=== PATIENT | female | born 1980 | race Caucasian/White ===

== ENCOUNTER 2021-07-07 12:29 | Emergency (ER) | payer SELFPAY ==
[2021-07-07] MEDS ORDERED: Haloperidol Lactate 5 MG/ML SDV IM ONE ×2 (13:52→13:59)
[2021-07-07] MEDS ORDERED: Haloperidol Lactate 5 MG/ML SDV ONE (13:54)
[2021-07-07 14:09] LABS: BUPRENORPHINE,URINE NEGATIVE (NEGATIVE); MARIJUANA,URINE NEGATIVE (NEGATIVE); METHYLENEDIOXYMETHAMP,UR NEGATIVE (NEGATIVE); PHENCYCLIDINE,URINE NEGATIVE (NEGATIVE)
--- NOTE | 2021-07-07 14:18 | EDM.PDOCBH ---
ED HPI GENERAL MEDICAL PROBLEM - General Stated Complaint: aggitated Time Seen by Provider: 07/07/21 14:12 Source of Information: Reports: Patient History Limitations: Reports: Altered Mental Status - History of Present Illness INITIAL COMMENTS - FREE TEXT/NARRATIVE: Patient is brought to the emergency department by the local Police Department with concerns of a mental health crisis. This patient was found wandering around town attempting to get into houses. She had an agitated state and confusion therefore the Police Department brought her to the ER and dropped her off and then the left. HPI is somewhat difficult to obtain from this patient as she is quite agitated and rambling and somewhat disoriented. From what I can get from the patient she reports that she was going to inpatient treatment for methamphetamine abuse somewhere today. She relates that she lives in [place]. She was on her way to inpatient treatment at [place] in [facility] for which she lives in [place] but she is in [place] for some reason trying to make amends with many of her family members. Just prior to going to inpatient treatment for methamphetamine abuse this patient injected snorted and smoked methamphetamines today. Rest of the HPI is unobtainable due to the patient's acute agitated methamphetamine induced psychosis. 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 She is in constant motion. She wax and wanes from laughing and crying.). No: Lethargic, Obtunded Eye Exam: Bilateral Eye: EOMI Ears: Normal External Exam Nose: Normal Inspection Throat/Mouth: Normal Inspection Head: Atraumatic, Normocephalic Neck: Normal Inspection, Supple, Non-Tender, Full Range of Motion Respiratory/Chest: No Respiratory Distress, Lungs Clear, Normal Breath Sounds, No Accessory Muscle Use, Chest Non-Tender Cardiovascular: Normal Peripheral Pulses, Regular Rate, Rhythm GI/Abdominal: Normal Bowel Sounds, Soft, Non-Tender, No Organomegaly (Female) Exam: Deferred Rectal (Female) Exam: Deferred Back Exam: Normal Inspection Extremities: Normal Inspection, Normal Range of Motion, Non-Tender, No Pedal Edema, Normal Capillary Refill Neurological: Alert, Normal Mood/Affect, CN II-XII Intact, Oriented x 3 Psychiatric: Alert, Restless, Tearful, Agitated, Disoriented, Flight of Ideas, Tangential Thoughts, Pressured Speech, Paranoid Thoughts. No: Homicidal Thoughts, Phobic, Latter-Day Delusions, Suicidal Plan, Suicidal Thoughts, Auditory Hallucinations, Visual Hallucinations, Grandiose Thoughts, Threatening Behavior Skin Exam: Warm, Dry, Intact, Normal color, No rash COURSE, BEHAVIORAL HEALTH COMP - Course Vital Signs: Last Vital Signs Temp 97.8 F 07/07/21 13:45 Pulse Resp BP Pulse Ox Orders, Labs, Meds: Active Orders 24 hr Category Date Time Status CORONAVIRUS COVID-19 RAPID [MOLEC] Stat Lab 07/07/21 13:56 Ordered Laboratory Tests 07/07/21 07/07/21 07/07/21 Range/Units 14:00 14:00 14:00 WBC (4.0-10.0) x10^3/uL RBC (4.00-5.50) x10^6/uL Hgb (12.0-16.0) g/dL Hct (33.0-47.0) % MCV (78.0-93.0) fL MCH (26.0-32.0) pg MCHC (32.0-36.0) g/dL RDW Coeff of Nicole (10.0-15.0) % Plt Count (130-400) x10^3/uL Immature Gran % (Auto) (0.00-0.43) % Neut % (Auto) (50.0-80.0) % Lymph % (Auto) (25.0-50.0) % [place] % (Auto) (2.0-11.0) % Eos % (Auto) (0.0-4.0) % Baso % (Auto) (0.2-1.2) % Neut # (Auto) (1.8-7.7) x10^3/uL Lymph # (Auto) (1.0-4.8) x10^3/uL [place] # (Auto) (0.0-0.8) x10^3/uL Eos # (Auto) (0.0-0.5) x10^3/uL Baso # (Auto) (0.0-0.2) x10^3/uL Immature Gran # (Auto) (0.00-0.07) x10^3/uL Sodium (136-145) mmol/L Potassium (3.5-5.1) mmol/L Chloride (98-107) mmol/L Carbon Dioxide (21-32) mmol/L Anion Gap (5-15) mmol/L BUN (7-18) mg/dL Creatinine (0.55-1.02) mg/dL Est Cr Clr Drug Dosing Estimated GFR (MDRD) Glucose (70-99) mg/dL Calcium (8.5-10.1) mg/dL Corrected Calcium (8.5-10.1) mg/dL Magnesium (1.8-2.4) mg/dL Total Bilirubin (0.2-1.0) mg/dL AST (15-37) U/L ALT (14-59) U/L Alkaline Phosphatase (46-116) U/L Total Protein (6.4-8.2) g/dL Albumin (3.4-5.0) g/dL Globulin Albumin/Globulin Ratio TSH, Ultra Sensitive (0.358-3.74) uIU/mL Urine Color Yellow (YELLOW) Urine Appearance Clear (CLEAR) Urine pH 5.5 (5.0-8.0) Ur Specific Moon 1.015 Urine Protein Negative (NEGATIVE) mg/dL Urine Glucose (UA) Negative (NEGATIVE) mg/dL Urine Ketones Negative (NEGATIVE) mg/dL Urine Occult Blood Negative (NEGATIVE) Urine Nitrite Negative (NEGATIVE) Urine Bilirubin Negative (NEGATIVE) Urine Urobilinogen 0.2 (0.2) EU/dL Ur Leukocyte Esterase Negative (NEGATIVE) Urine HCG, Qual Negative (NEGATIVE) Salicylates (2.8-20(Therapeutic)) mg/dL Urine Opiates Screen Negative (NEGATIVE) Ur Buprenorphine Scrn Negative (NEGATIVE) Ur Oxycodone Screen Negative (NEGATIVE) Urine Methadone Screen Negative (NEGATIVE) Acetaminophen (10-30) ug/ml Ur Barbituates Screen Negative (NEGATIVE) Ur Phencyclidine Scrn Negative (NEGATIVE) Ur Amphetamines Screen Negative (NEGATIVE) U Methamphetamines Scrn Negative (NEGATIVE) Urine MDMA Screen Negative (NEGATIVE) U Benzodiazepines Scrn Negative (NEGATIVE) Urine Cocaine Screen Negative (NEGATIVE) U Marijuana (THC) Screen Negative (NEGATIVE) 07/07/21 07/07/21 07/07/21 Range/Units 14:18 14:18 14:18 WBC 5.5 (4.0-10.0) x10^3/uL RBC 5.19 (4.00-5.50) x10^6/uL Hgb 14.2 (12.0-16.0) g/dL Hct 41.6 (33.0-47.0) % MCV 80.2 (78.0-93.0) fL MCH 27.4 (26.0-32.0) pg MCHC 34.1 (32.0-36.0) g/dL RDW Coeff of Nicole 13.3 (10.0-15.0) % Plt Count 397 (130-400) x10^3/uL Immature Gran % (Auto) 0.20 (0.00-0.43) % Neut % (Auto) 50.7 (50.0-80.0) % Lymph % (Auto) 37.7 (25.0-50.0) % [place] % (Auto) 10.5 (2.0-11.0) % Eos % (Auto) 0.4 (0.0-4.0) % Baso % (Auto) 0.5 (0.2-1.2) % Neut # (Auto) 2.8 (1.8-7.7) x10^3/uL Lymph # (Auto) 2.1 (1.0-4.8) x10^3/uL [place] # (Auto) 0.6 (0.0-0.8) x10^3/uL Eos # (Auto) 0.0 (0.0-0.5) x10^3/uL Baso # (Auto) 0.0 (0.0-0.2) x10^3/uL Immature Gran # (Auto) 0.01 (0.00-0.07) x10^3/uL Sodium 140 (136-145) mmol/L Potassium 3.5 (3.5-5.1) mmol/L Chloride 103 (98-107) mmol/L Carbon Dioxide 25 (21-32) mmol/L Anion Gap 15.5 H (5-15) mmol/L BUN 9 (7-18) mg/dL Creatinine 0.7 (0.55-1.02) mg/dL Est Cr Clr Drug Dosing TNP Estimated GFR (MDRD) > 60 Glucose 106 H (70-99) mg/dL Calcium 9.7 (8.5-10.1) mg/dL Corrected Calcium 9.5 (8.5-10.1) mg/dL Magnesium 2.1 (1.8-2.4) mg/dL Total Bilirubin 0.7 (0.2-1.0) mg/dL AST 27 (15-37) U/L ALT 27 (14-59) U/L Alkaline Phosphatase 55 (46-116) U/L Total Protein 9.0 H (6.4-8.2) g/dL Albumin 4.2 (3.4-5.0) g/dL Globulin 4.8 Albumin/Globulin Ratio 0.88 TSH, Ultra Sensitive 0.886 (0.358-3.74) uIU/mL Urine Color (YELLOW) Urine Appearance (CLEAR) Urine pH (5.0-8.0) Ur Specific Moon Urine Protein (NEGATIVE) mg/dL Urine Glucose (UA) (NEGATIVE) mg/dL Urine Ketones (NEGATIVE) mg/dL Urine Occult Blood (NEGATIVE) Urine Nitrite (NEGATIVE) Urine Bilirubin (NEGATIVE) Urine Urobilinogen (0.2) EU/dL Ur Leukocyte Esterase (NEGATIVE) Urine HCG, Qual (NEGATIVE) Salicylates < 0.2 L (2.8-20(Therapeutic)) mg/dL Urine Opiates Screen (NEGATIVE) Ur Buprenorphine Scrn (NEGATIVE) Ur Oxycodone Screen (NEGATIVE) Urine Methadone Screen (NEGATIVE) Acetaminophen 0 L (10-30) ug/ml Ur Barbituates Screen (NEGATIVE) Ur Phencyclidine Scrn (NEGATIVE) Ur Amphetamines Screen (NEGATIVE) U Methamphetamines Scrn (NEGATIVE) Urine MDMA Screen (NEGATIVE) U Benzodiazepines Scrn (NEGATIVE) Urine Cocaine Screen (NEGATIVE) U Marijuana (THC) Screen (NEGATIVE) Medications Discontinued Medications Generic Name Dose Route Start Last Admin Trade Name Freq PRN Reason Stop Dose Admin Haloperidol Lactate 5 mg 07/07/21 13:52 07/07/21 13:55 Haloperidol Lactate 5 Mg/Ml Sdv IM 07/07/21 13:53 5 mg STAT ONE Administration Haloperidol Lactate Confirm 07/07/21 13:54 Haloperidol Lactate 5 Mg/Ml Sdv Administered 07/07/21 13:55 Dose 5 mg .ROUTE .STK-MED ONE Haloperidol Lactate 5 mg 07/07/21 13:59 Haloperidol Lactate 5 Mg/Ml Sdv IM 07/07/21 14:00 STAT ONE Re-Assessment/Re-Exam: The patient at times is attempting to leave and she is quite agitated. She is s omewhat redirectable with verbal. She was given 5 mg of Haldol IM. She responded well and calmed and was more appropriate. She tells me that she is supposed to be at a treatment facility at the [facility] program in [place]. I called and spoke with Janes at the [facility] and she is well aware of this patient. They have been attempting to locate her over the past couple of days that she left treatment on her own she is currently homeless. They would really like her to return because she is a chronic methamphetamine user who really struggles when she is using quite a bit. She is medically cleared at this time her laboratory evaluation is rather unremarkable. Her urine drug screen is negative although she just recently admitted to the use of methamphetamine by snorting, smoking and injection. She has tolerated the Haldol appropriately. She is alert she is ambulatory and she is comfortable with this plan. She went with the [place] police department to the [facility] program for further treatment. Departure - Departure Time of Disposition: 15:24 Disposition: DC/Tfer to Psych Hosp/Unit 65 Clinical Impression: Methamphetamine intoxication Drug-induced psychotic disorder Qualifiers: Complication of substance-induced condition: with unspecified complication Qualified Code(s): F19.959 - Other psychoactive substance use, unspecified with psychoactive substance-induced psychotic disorder, unspecified - Discharge Information *PRESCRIPTION DRUG MONITORING PROGRAM REVIEWED*: Not Applicable *COPY OF PRESCRIPTION DRUG MONITORING REPORT IN PATIENT JAMILA: Not Applicable Referrals: Rowena Cespedes NP [Primary Care Provider] - Forms: ED Department Discharge Additional Instructions: With the police department to [facility] in [place]. [address] [place]. [phone] [place] until 5pm. Call [phone] and ask for [employer] vice president for [facility] screener if after 5pm. Discontinue usage of methamphetamine. Drink plenty of fluids over the next few days especially electrolyte containing fluids like gatorade and or powerade and eat regular meals. Sepsis Event Note (ED) - Focused Exam Vital Signs: Vital Signs Temp 07/07/21 13:45 97.8 F - My Orders Last 24 Hours: My Active Orders 07/07/21 13:56 CORONAVIRUS COVID-19 RAPID [MOLEC] Stat - Assessment/Plan Last 24 Hours: My Active Orders 07/07/21 13:56 CORONAVIRUS COVID-19 RAPID [MOLEC] Stat
[2021-07-07 14:50] LABS: CHLORIDE,CL 103 mmol/L (98-107); SODIUM,NA 140 mmol/L (136-145)
[2021-07-07 14:51] LABS: ACETAMINOPHEN 0 ug/ml (10-30); ANION GAP 15.5 mmol/L (5-15)
== END 2021-07-07 16:04 ==
LOC: VM.ED 12:29
DX: F19.959 Other psychoactive substance use, unspecified with psychoactive substance-induced psychotic disorder, unspecified (principal); F15.129 Other stimulant abuse with intoxication, unspecified
CPT/HCPCS: 36415; 80053; 80143; 80179; 80305; 81003; 81025; 83735; 84443; 85025; 96372; 99285; J1630